=== PATIENT | male | born 1990 | race American Indian/Alaskan Native ===

== ENCOUNTER 2021-08-19 16:01 | Emergency (ER) | payer SELFPAY ==
[2021-08-19] MEDS ORDERED: ALBUTEROL 2.5 MG/3 ML NEBU IH ONE (16:54)
--- NOTE | 2021-08-19 17:20 | XRay Report ---
CHEST 2 VIEWS INDICATION / CLINICAL INFORMATION: cough. COMPARISON: None available. FINDINGS: SUPPORT DEVICES: None. HEART / MEDIASTINUM: No significant abnormality. LUNGS / PLEURA: There are patchy bilateral pulmonary opacities. ADDITIONAL FINDINGS: No significant additional findings. IMPRESSION: 1. Patchy bilateral pulmonary opacities concerning for multifocal pneumonia. Signer Name: Kirk Alvarez MD Signed: 08/19/2021 5:16 PM Workstation Name: [id number]
--- NOTE | 2021-08-19 19:23 | Emergency Department Report ---
ED General Adult HPI - General Chief complaint: Upper Respiratory Infection Stated complaint: cough Time Seen by Provider: 08/19/21 16:50 Source: patient Mode of arrival: Ambulatory Limitations: No Limitations - History of Present Illness Initial comments: 31-year-old F Jamaican male with past medical history of asthma presents emerged department complaining of 1 month history of cough with with yellowish and green discharge with initially occasional blood-tinged mucus of unknown etiology. States that he has been having excessive coughing causing him to have spells of vomiting at which an occasional shortness of breath when climbing flights of stairs off and on. He reports no fever, chills, sweats. No no vomiting or diarrhea but states he had a strong suspicion of having had Covid never got checked. -: Gradual Radiation: non-radiation Severity scale (0 -10): 2 Quality: aching, dull Consistency: constant Improves with: none Worsens with: none Associated Symptoms: cough, malaise, shortness of breath. denies: diaphoresis, fever/chills, loss of appetite, nausea/vomiting, syncope, weakness - Related Data Previous Rx's Medication Instructions Recorded Last Taken Type oxyCODONE /ACETAMINOPHEN [Percocet 1 tab PO Q6HR PRN #20 tablet 03/07/16 Unknown Rx 5/325] traMADoL [Ultram] 50 mg PO Q4HR PRN #20 tablet 03/07/16 Unknown Rx Albuterol Mdi (or & Nicu Only) 2 puff IH QID PRN #1 inhalation 08/19/21 Unknown Rx [ProAir HFA Inhaler] Azithromycin [Zithromax] 500 mg PO QDAY #5 tablet 08/19/21 Unknown Rx Benzonatate [Tessalon Perles] 100 mg PO Q8HR #20 capsule 08/19/21 Unknown Rx predniSONE [Deltasone] 50 mg PO QDAY #5 tab 08/19/21 Unknown Rx Allergies Allergy/AdvReac Type Severity Reaction Status Date / Time Penicillins Allergy Unknown Verified 03/06/16 22:49 ED Review of Systems ROS: Stated complaint: cough Other details as noted in HPI Comment: All other systems reviewed and negative ED Past Medical Hx - Past Medical History Hx Asthma: Yes - Social History Smoking Status: Never Smoker Substance Use Type: None - Medications Home Medications: Home Medications Medication Instructions Recorded Confirmed Last Taken Type oxyCODONE /ACETAMINOPHEN [Percocet 1 tab PO Q6HR PRN #20 tablet 03/07/16 Unknown Rx 5/325] traMADoL [Ultram] 50 mg PO Q4HR PRN #20 tablet 03/07/16 Unknown Rx Albuterol Mdi (or & Nicu Only) 2 puff IH QID PRN #1 inhalation 08/19/21 Unknown Rx [ProAir HFA Inhaler] Azithromycin [Zithromax] 500 mg PO QDAY #5 tablet 08/19/21 Unknown Rx Benzonatate [Tessalon Perles] 100 mg PO Q8HR #20 capsule 08/19/21 Unknown Rx predniSONE [Deltasone] 50 mg PO QDAY #5 tab 08/19/21 Unknown Rx ED Physical Exam - General Limitations: No Limitations General appearance: alert, in no apparent distress - Head Head exam: Present: atraumatic, normocephalic - Eye Eye exam: Present: normal appearance, PERRL, EOMI - ENT ENT exam: Present: mucous membranes moist - Neck Neck exam: Present: normal inspection - Respiratory Respiratory exam: Present: normal lung sounds bilaterally, rhonchi. Absent: respiratory distress, chest wall tenderness - Cardiovascular Cardiovascular Exam: Present: regular rate, normal rhythm. Absent: systolic murmur, diastolic murmur, rubs, gallop - GI/Abdominal GI/Abdominal exam: Present: soft, normal bowel sounds - Rectal Rectal exam: Present: deferred - Extremities Exam Extremities exam: Present: normal inspection - Back Exam Back exam: Present: normal inspection - Neurological Exam Neurological exam: Present: alert, oriented X3 - Psychiatric Psychiatric exam: Present: normal affect, normal mood - Skin Skin exam: Present: warm, dry, intact, normal color. Absent: rash ED Course Vital Signs 08/19/21 16:02 Temperature 98.5 F Pulse Rate 124 H Respiratory 18 Rate Blood Pressure 173/125 [Left] O2 Sat by Pulse 99 Oximetry ED Medical Decision Making - Radiology Data Radiology results: report reviewed [facility] [address] [place] [address] XRay Report Signed Patient: TERRI YANG MR#: Louie [id number] : 1990 Acct:[id number] Age/Sex: 31 / M ADM Date: 08/19/21 Loc: ED Attending Dr: Ordering Physician: YOUNG ESCOBAR Date of Service: 08/19/21 Procedure(s): XR chest routine 2V Accession Number(s): [id number] cc: YOUNG ESCOBAR Fluoro Time In Minutes: CHEST 2 VIEWS INDICATION / CLINICAL INFORMATION: cough. COMPARISON: None available. FINDINGS: SUPPORT DEVICES: None. HEART / MEDIASTINUM: No significant abnormality. LUNGS / PLEURA: There are patchy bilateral pulmonary opacities. ADDITIONAL FINDINGS: No significant additional findings. IMPRESSION: 1. Patchy bilateral pulmonary opacities concerning for multifocal pneumonia. Signer Name: Kirk Alvarez MD Signed: 08/19/2021 5:16 PM Workstation Name: [id number] Transcribed By: LESLYE Dictated By: Kirk Alvarez MD Electronically Authenticated By: Kirk Alvarez MD Signed Date/Time: 08/19/211715 DD/ 14 TD/TT: Print - Medical Decision Making Problem 1 cough This patient presents with acute cough, most consistent with pneumonia. Differential diagnosis includes asthma, bronchitis, hyperreactive airway disease, pneumonia. Presentation not consistent with chronic causes of cough (including GERD, asthma, postnasal discharge, medication side effect, CHF, lung cancer or mass). Chest x-ray did confirm bilateral lateral multifocal pneumonia the patient did maintain normal saturations with with ambulation ranging greater than 97% and heart rate maximum during ambulation was 104 Plan: supportive care, reassess Problem 2 URI symptoms This patient presents to the emergency department with fever and lower respiratory symptoms concerning for viral syndrome including flu and COVID-19. Patient has suspicion and is for COVID-19 infection. Differential diagnosis includes other viral causes of lower respiratory symptoms, pneumonia, asthma, bronchitis. Patient is well-appearing with acceptable vitals, lacks comorbidities admission and a reassuring physical examination and is safe to be discharged home nasal swab for COVID testing is recommended. Provide strict return precautions and instructions on self isolation/quarantine and anticipatory guidance. Critical care attestation.: If time is entered above; I have spent that time in minutes in the direct care of this critically ill patient, excluding procedure time. ED Disposition Clinical Impression: Bilateral pneumonia Disposition: HOME / SELF CARE / HOMELESS Is pt being admited?: No Does the pt Need Aspirin: No Condition: Stable Instructions: Bacterial Pneumonia (ED), Community-Acquired Pneumonia, Adult Referrals: PRIMARY CARE,MD [Primary Care Provider] - 3-5 Days EVAN LÓPEZ MD [Staff Physician] - 3-5 Days
[2021-08-19 21:08] VITALS: BP 170/124
== END 2021-08-19 20:05 | disposition home or self-care (01) ==
LOC: ED 16:01
DX: J18.9 Pneumonia, unspecified organism (principal); J45.909 Unspecified asthma, uncomplicated; Z88.0 Allergy status to penicillin
CPT/HCPCS: 71046; 94640; 99283

== ENCOUNTER 2021-09-10 09:11 | Emergency (ER) | payer SELFPAY ==
[2021-09-10 09:16] VITALS: BP 146/98
[2021-09-10 11:35] LABS: Basophils # (Auto) 0.1 K/mm3 (0.0-0.1); Basophils % (Auto) 0.7 % (0.0-1.8); Eosinophils # (Auto) 0.1 K/mm3 (0.0-0.4); Eosinophils % (Auto) 0.7 % (0.0-4.3); Hematocrit 39.5 % (35.5-45.6); Hemoglobin 12.7 gm/dl (11.8-15.2); Lymphocytes # (Auto) 1.8 K/mm3 (1.2-5.4); Lymphocytes % (Auto) 24.1 % (13.4-35.0); Mean Corpuscular HGB Conc 32 % (32-34); Mean Corpuscular Volume 84 fl (84-94); Monocytes # (Auto) 0.3 K/mm3 (0.0-0.8); Monocytes % (Auto) 4.3 % (0.0-7.3); Platelet Count 197 K/mm3 (140-440); Red Cell Distribution Width 15.8 % (13.2-15.2)
[2021-09-10 11:57] LABS: BUN/Creatinine Ratio 13
[2021-09-10 11:58] LABS: Alanine Aminotransferase 55 units/L (7-56); Albumin 3.7 g/dL (3.9-5); Blood Urea Nitrogen 19 mg/dL (9-20); Calcium 8.4 mg/dL (8.4-10.2); Hemolysis Index 4
--- NOTE | 2021-09-10 12:38 | XRay Report ---
CHEST 1 VIEW INDICATION: Dyspnea. COMPARISON: 08/19/2021 FINDINGS: Support devices: None. Heart: Enlarged, unchanged. Lungs/Pleura: There is persistent consolidation in the right lower lobe. Right upper lobe airspace di sease has resolved. Left lung is clear. IMPRESSION: 1. Interval improvement since the exam from 08/19/2021 with persistent right lower lobe airspace dise ase. Signer Name: Gopal Cash MD Signed: 09/10/2021 12:33 PM Workstation Name: [address] [employer] [email or web address] [id number]
--- NOTE | 2021-09-10 12:48 | Emergency Department Report ---
ED Shortness of Breath HPI - General Chief Complaint: Dyspnea/Respdistress Stated Complaint: SHORT OF BREATH Time Seen by Provider: 09/10/21 11:07 Source: patient Mode of arrival: Stretcher Limitations: No Limitations - History of Present Illness MD Complaint: shortness of breath -: Gradual, week(s) Pain Scale: 0 Improves With: nothing Worsens With: exertion Known History Of: asthma Context: recent URI - Related Data Previous Rx's Medication Instructions Recorded Last Taken Type oxyCODONE /ACETAMINOPHEN [Percocet 1 tab PO Q6HR PRN #20 tablet 03/07/16 Unknown Rx 5/325] traMADoL [Ultram] 50 mg PO Q4HR PRN #20 tablet 03/07/16 Unknown Rx Albuterol Mdi (or & Nicu Only) 2 puff IH QID PRN #1 inhalation 08/19/21 Unknown Rx [ProAir HFA Inhaler] Azithromycin [Zithromax] 500 mg PO QDAY #5 tablet 08/19/21 Unknown Rx Benzonatate [Tessalon Perles] 100 mg PO Q8HR #20 capsule 08/19/21 Unknown Rx predniSONE [Deltasone] 50 mg PO QDAY #5 tab 08/19/21 Unknown Rx levoFLOXacin [Levaquin TAB] 500 mg PO QDAY #10 tablet 09/10/21 Unknown Rx Allergies Allergy/AdvReac Type Severity Reaction Status Date / Time Penicillins Allergy Unknown Verified 03/06/16 22:49 ED Review of Systems ROS: Stated complaint: SHORT OF BREATH Other details as noted in HPI Constitutional: denies: chills, fever Eyes: denies: eye pain, eye discharge, vision change ENT: denies: ear pain, throat pain Respiratory: denies: cough, shortness of breath, wheezing Cardiovascular: denies: chest pain, palpitations Endocrine: no symptoms reported Gastrointestinal: denies: abdominal pain, nausea, diarrhea Genitourinary: denies: urgency, dysuria Musculoskeletal: denies: back pain, joint swelling, arthralgia Skin: denies: rash, lesions Neurological: denies: headache, weakness, paresthesias Psychiatric: denies: anxiety, depression Hematological/Lymphatic: denies: easy bleeding, easy bruising ED Past Medical Hx - Past Medical History Previous Medical History?: Yes Hx Asthma: Yes - Surgical History Past Surgical History?: No - Social History Smoking Status: Never Smoker Substance Use Type: None - Medications Home Medications: Home Medications Medication Instructions Recorded Confirmed Last Taken Type oxyCODONE /ACETAMINOPHEN [Percocet 1 tab PO Q6HR PRN #20 tablet 03/07/16 Unknown Rx 5/325] traMADoL [Ultram] 50 mg PO Q4HR PRN #20 tablet 03/07/16 Unknown Rx Albuterol Mdi (or & Nicu Only) 2 puff IH QID PRN #1 inhalation 08/19/21 Unknown Rx [ProAir HFA Inhaler] Azithromycin [Zithromax] 500 mg PO QDAY #5 tablet 08/19/21 Unknown Rx Benzonatate [Tessalon Perles] 100 mg PO Q8HR #20 capsule 08/19/21 Unknown Rx predniSONE [Deltasone] 50 mg PO QDAY #5 tab 08/19/21 Unknown Rx levoFLOXacin [Levaquin TAB] 500 mg PO QDAY #10 tablet 09/10/21 Unknown Rx ED Physical Exam - General Limitations: No Limitations General appearance: alert, in no apparent distress - Head Head exam: Present: atraumatic, normocephalic - Eye Eye exam: Present: normal appearance - ENT ENT exam: Present: mucous membranes moist - Neck Neck exam: Present: normal inspection - Respiratory Respiratory exam: Present: normal lung sounds bilaterally. Absent: respiratory distress - Cardiovascular Cardiovascular Exam: Present: regular rate, normal rhythm. Absent: systolic murmur, diastolic murmur, rubs, gallop - GI/Abdominal GI/Abdominal exam: Present: soft, normal bowel sounds - Rectal Rectal exam: Present: deferred - Extremities Exam Extremities exam: Present: normal inspection - Back Exam Back exam: Present: normal inspection - Neurological Exam Neurological exam: Present: alert, oriented X3 - Psychiatric Psychiatric exam: Present: normal affect, normal mood - Skin Skin exam: Present: warm, dry, intact, normal color. Absent: rash ED Course Vital Signs 09/10/21 09/10/21 09/10/21 09:15 09:16 10:46 Temperature 97.9 F Pulse Rate 122 H 132 H Respiratory 22 30 H Rate Blood Pressure 146/98 [Right] O2 Sat by Pulse 93 98 97 Oximetry 09/10/21 10:57 Temperature Pulse Rate Respiratory Rate Blood Pressure [Right] O2 Sat by Pulse 98 Oximetry - Reevaluation(s) Reevaluation #1: 12/08/21 12:46 vss o2 sat 100 onRA no distress ED Medical Decision Making - Lab Data Result diagrams: 09/10/21 11:21 09/10/21 11:21 - EKG Data -: EKG Interpreted by Me Critical care attestation.: If time is entered above; I have spent that time in minutes in the direct care of this critically ill patient, excluding procedure time. ED Disposition Clinical Impression: SOB (shortness of breath), Pneumonia Disposition: 01 HOME / SELF CARE / HOMELESS Is pt being admited?: No Does the pt Need Aspirin: No Condition: Stable Instructions: Bacterial Pneumonia (ED), Shortness of Breath, Adult, [id number], Cough, Adult Referrals: PRIMARY CARE, [Primary Care Provider] - 3-5 Days Time of Disposition: 12:46
[2021-09-10] MEDS ORDERED: IPRATROPIUM/ALBUTEROL SULFATE 3 ML AMPUL.NEB IH ONE (12:55)
[2021-09-10 13:02] LABS: Bilirubin,Urine NEG (Negative); Blood,Urine NEG (Negative); Color,Urine Yellow (Yellow); Mucus,Urine FEW /HPF; RBC,Urine < 1.0 /HPF (0.0-6.0); Urobilinogen,Urine < 2.0 mg/dL (<2.0)
[2021-09-10 13:07] LABS: Amphetamine Screen,Urine Negative; Benzodiazepines Screen,Urine Negative; Cannabinoid Screen,Urine Negative; Cocaine Screen,Urine Negative; Methadone Screen,Urine Negative; Opiate Screen,Urine Negative
[2021-09-10 13:08] LABS: Protein,Urine >500 mg/dL (Negative)
== END 2021-09-10 13:57 | disposition home or self-care (01) ==
LOC: ED 09:11
DX: J18.9 Pneumonia, unspecified organism (principal); R06.02 Shortness of breath; J45.909 Unspecified asthma, uncomplicated
CPT/HCPCS: 36415; 71045; 80053; 80307; 81001; 83690; 84484; 85025; 99284